=== PATIENT | male | born 1985 | race Caucasian/White ===

== ENCOUNTER 2021-11-27 19:40 | Emergency (ER) | payer OTHER ==
[~2021-11-27 19:40] MED LIST: CLEOCIN HCL150 MG PO; IBUPROFEN800 MG PO
== END 2021-11-28 02:30 | disposition left against medical advice (07) ==
LOC: ER1 19:40
DX: S40.012A Contusion of left shoulder, initial encounter (principal); R07.89 Other chest pain; W19.XXXA Unspecified fall, initial encounter
CPT/HCPCS: 71045; 73030; 99283